=== PATIENT | female | born 1975 | race American Indian/Alaskan Native ===

== ENCOUNTER 2016-06-26 06:34 | Emergency (ER) | payer SELFPAY ==
[2016-06-26 07:01] VITALS: BP 175/112
[2016-06-28] MEDS ORDERED: NACL ONE (13:57)
== END 2016-06-26 22:00 | disposition left against medical advice (07) ==
LOC: ED 06:34
DX: M54.5 Low back pain (principal); R10.31 Right lower quadrant pain; R11.10 Vomiting, unspecified; Z88.1 Allergy status to other antibiotic agents; Z88.0 Allergy status to penicillin; Z88.8 Allergy status to other drugs, medicaments and biological substances; Z53.21 Procedure and treatment not carried out due to patient leaving prior to being seen by health care provider